=== PATIENT | female | born 1985 | race Two or more races ===

== ENCOUNTER 2018-06-09 12:25 | Emergency (ER) | payer OTHER ==
--- NOTE | 2018-06-09 13:28 | EDPHY ---
H & P Time Seen by Provider: 06/09/18 12:45 HPI/ROS: HPI Bruising, fullness in right leg and right arm. 32-year-old female by private vehicle. She comes from work. She reports she has been very anxious lately and under a lot of stress. She states that since yesterday she has had a sense of fullness in her right fist and the back of her right hand similar to when she was . She also reports that she feels this same sensation of fullness in her right anterior mid leg. She denies weakness. She also is concerned that she is bruising easily. She has some small bruises on her wrists and legs. I asked if she remembers hitting her extremities against certain objects and she states that she does not. She reports that she tried to see her primary care physician through [facility] but was referred here for further evaluation. ROS: Constitutional: No fever, no chills. As above. Eyes: No discharge. No changes in vision. ENT: No sore throat. No nasal congestion or rhinorrhea. Respiratory: No cough. No shortness of breath. Cardiac: No chest pain, no palpitations. Gastrointestinal: No abdominal pain, no vomiting, no diarrhea. Genitourinary: No hematuria. No dysuria or increased frequency with urination. Musculoskeletal: No back pain. No neck pain. No myalgias or arthralgias. Skin: No rashes. Neurological: No headache. No focal weakness or loss of sensation. Past medical history: No past medical history. Nonsmoker. No alcohol. She is . She has a child. Social history: Nonsmoker. Here by herself. No alcohol. Physical Exam: General Appearance: Alert, anxious but not in distress. This patient is responding to questions appropriately and in full sentences. This patient appears well-hydrated and well-nourished. Eyes: Pupils equal and round no pallor or injection. No lid edema, erythema or injection. No photophobia. No nystagmus. Respiratory: There are no retractions, lungs are clear to auscultation with good air movement bilaterally. Cardiovascular: Regular rate and rhythm. No murmur. Gastrointestinal: Abdomen is soft and nontender, no masses, bowel sounds normal. No focal tenderness at McBurney's point. No Chi sign. Neurological: Motor sensory function is grossly intact. Specifically, motor sensory function normal in all myotomes in dermatomes of the bilateral upper and bilateral lower extremities. Cranial nerves are normal. Cerebellar function normal. Gait is normal. Skin: Warm and dry, no rashes. Musculoskeletal: Neck is supple and nontender. Extremities are symmetrical. All joints range without pain or impingement. Psychiatric: No agitation. No depression. Database: EKG: Imaging: Procedures: Emergency department course: Triage vital signs reviewed and are normal. I am unable to appreciate any significant findings on her neurologic exam. She is concerned about her bruising and demanding that blood work be done to check her blood. I agree to do a CBC. I will also check a chemistry and coags on her. I feel that her complaints are likely stress and anxiety driven. I feel CVA is unlikely. 2:50 p.m., the patient was re-evaluated. She is resting comfortably at this time. I discussed the results of her blood work with her. She is reassured by this. She is asking me for medication for anxiety. I will give her a limited prescription for Ativan to take at night. I explained that she could not drive on this medication. Repeat neurologic Assessment is nonfocal. I feel that central nervous system etiology is very unlikely. She feels comfortable going home at this time. She will follow up with her primary care physician at [facility] early next week for re-evaluation. Return to emergency department precautions were reviewed with her. All of her questions were answered. She was discharged from the emergency department in good condition. Differential Diagnosis: The differential diagnosis on this patient includes but is not limited to anxiety reaction. CVA, TIA, radiculopathy, MS, Lyme disease unlikely. This represents a partial list of diagnoses considered. These considerations are based on history, physical exam, past history, reassessment and diagnostic testing. Smoking Status: Never smoked Constitutional: Initial Vital Signs Temperature (C) 36.8 C 06/09/18 12:26 Heart Rate 61 06/09/18 12:26 Respiratory Rate 16 06/09/18 12:26 Blood Pressure 123/73 H 06/09/18 12:26 O2 Sat (%) 98 06/09/18 12:26 O2 Delivery Mode Room Air Allergies/Adverse Reactions: No Known Allergies Allergy (Unverified 08/05/13 21:16) Home Medications: Medication Instructions Recorded Ortho-Evera Patch 08/05/13 LORazepam [Ativan] 1 mg PO Q6-8PRN PRN #5 tablet 06/09/18 Magnesium 06/09/18 Melatonin 06/09/18 Medical Decision Making - Data Points Laboratory Results: Laboratory Results 06/09/18 13:50 06/09/18 13:50 06/09/18 06/09/18 06/09/18 13:50 13:50 13:50 WBC RBC Hgb Hct MCV MCH MCHC RDW Plt Count MPV Neut % (Auto) Lymph % (Auto) Isabella % (Auto) Eos % (Auto) Baso % (Auto) Nucleat RBC Rel Count Absolute Neuts (auto) Absolute Lymphs (auto) Absolute Monos (auto) Absolute Eos (auto) Absolute Basos (auto) Absolute Nucleated RBC Immature Gran % Immature Gran # PT 13.2 SEC SEC (12.0-15.0) INR 0.98 (0.83-1.16) APTT 28.1 SEC SEC (23.0-38.0) Sodium 139 mEq/L mEq/L (135-145) Potassium 4.1 mEq/L mEq/L (3.3-5.0) Chloride 106 mEq/L mEq/L (97-110) Carbon Dioxide 21 mEq/l L mEq/l (22-31) Anion Gap 12 mEq/L mEq/L (8-16) BUN 11 mg/dL mg/dL (7-23) Creatinine 0.5 mg/dL L mg/dL (0.6-1.0) Estimated GFR > 60 Glucose 84 mg/dL mg/dL (70-100) Calcium 9.6 mg/dL mg/dL (8.5-10.4) Beta HCG, Qual NEGATIVE 06/09/18 13:50 WBC 6.79 10^3/uL 10^3/uL (3.80-9.50) RBC 4.55 10^6/uL 10^6/uL (4.18-5.33) Hgb 14.5 g/dL g/dL (12.6-16.3) Hct 41.0 % % (38.0-47.0) MCV 90.1 fL fL (81.5-99.8) MCH 31.9 pg pg (27.9-34.1) MCHC 35.4 g/dL g/dL (32.4-36.7) RDW 12.8 % % (11.5-15.2) Plt Count 267 10^3/uL 10^3/uL (150-400) MPV 10.3 fL fL (8.7-11.7) Neut % (Auto) 64.8 % % (39.3-74.2) Lymph % (Auto) 24.7 % % (15.0-45.0) Isabella % (Auto) 8.5 % % (4.5-13.0) Eos % (Auto) 1.5 % % (0.6-7.6) Baso % (Auto) 0.4 % % (0.3-1.7) Nucleat RBC Rel Count 0.0 % % (0.0-0.2) Absolute Neuts (auto) 4.39 10^3/uL 10^3/uL (1.70-6.50) Absolute Lymphs (auto) 1.68 10^3/uL 10^3/uL (1.00-3.00) Absolute Monos (auto) 0.58 10^3/uL 10^3/uL (0.30-0.80) Absolute Eos (auto) 0.10 10^3/uL 10^3/uL (0.03-0.40) Absolute Basos (auto) 0.03 10^3/uL 10^3/uL (0.02-0.10) Absolute Nucleated RBC 0.00 10^3/uL 10^3/uL (0-0.01) Immature Gran % 0.1 % % (0.0-1.1) Immature Gran # 0.01 10^3/uL 10^3/uL (0.00-0.10) PT INR APTT Sodium Potassium Chloride Carbon Dioxide Anion Gap BUN Creatinine Estimated GFR Glucose Calcium Beta HCG, Qual Medications Given: Discontinued Medications Sodium Chloride (Ns) 500 mls @ 1,000 mls/hr IV EDNOW ONE PRN Reason: Protocol Stop: 06/09/18 13:58 Last Admin: 06/09/18 14:08 Dose: 500 mls Departure - Departure Disposition: Home, Routine, Self-Care Clinical Impression: Paresthesia, Anxiety reaction Condition: Good Instructions: Generalized Anxiety Disorder (ED), Paresthesia (ED) Additional Instructions: Read and follow provided instructions. Follow-up with your primary care physician in early next week on Wednesday or Wednesday for re-evaluation. Call tomorrow morning for appointment time. If you can be seen tomorrow that would be ideal. Take medication as prescribed anxiety. Do not drive while on this medication. Return to the emergency department for worsening symptoms or other serious concerns. Referrals: Yvette Jones MD [Primary Care Provider] - As per Instructions Prescriptions: LORazepam [Ativan] 1 mg PO Q6-8PRN PRN #5 tablet PRN Reason: Anxiety
[2018-06-09] MEDS ORDERED: NS 500 ML IV ONE (13:29)
[2018-06-09 13:57] LABS: PLATELET COUNT 267 10^3/uL (150-400)
[2018-06-09 14:05] LABS: INR 0.98 (0.83-1.16); PROTIME(PATIENT) 13.2 SEC (12.0-15.0)
[2018-06-09 15:17] VITALS: BP 119/81
== END 2018-06-09 15:17 | disposition home or self-care (01) ==
DX: R20.2 Paresthesia of skin (principal); F41.9 Anxiety disorder, unspecified